=== PATIENT | male | born 1945 | race Caucasian/White ===

== ENCOUNTER 2017-08-30 15:20 | Observation (INO) ==
--- NOTE | 2017-08-30 15:27 | Emergency Department Note ---
Disposition Clinical Impression: Periprosthetic fracture around prosthetic knee, Tibial plateau fracture, left Disposition: Admitted As Inpatient Condition: Good Referrals: Daniel Mera DO [Primary Care Provider] - Forms: ED Satisfaction Letter Time of Disposition: 17:21 Lower Extremity Injury HPI - General Chief Complaint: ED Extremity Injury, Lower Stated Complaint: LEFT KNEE/UPPER LEG INJURY Time Seen by Provider: 08/30/17 15:25 Source: patient, EMS Mode of arrival: EMS Limitations: no limitations Nursing Notes Reviewed: Yes Vital Signs Reviewed: Yes - History of Present Illness HPI Narrative: patient slipped today on wet pavement and bent his L knee under him. Has a L knee replacement and concerned about hardware. States he feels like he just pulled a muscle but hasn't been in this much pain before. No head injury or LOC. No CP, SOB, abd pain, n/v/d. - Related Data Allergies Allergy/AdvReac Type Severity Reaction Status Date / Time No Known Allergies Allergy Verified 08/30/17 15:36 Review of Systems: As reviewed in the HPI. All other systems reviewed are negative or normal. Past Medical History - Past Medical History Attestation: Yes The following information was validated with the patient. Source: patient Physical Exam - General Limitations: no limitations General appearance: alert, in no apparent distress - Head Head exam: atraumatic, normocephalic, normal inspection - Chest Chest inspection: Present: normal inspection, symmetric chest wall rise - Respiratory Respiratory exam: Present: normal lung sounds bilaterally - Cardiovascular Cardiovascular exam: Present: regular rate, normal rhythm, normal heart sounds - Abdominal Exam Abdominal exam: Present: soft, Non-Tender. Absent: tenderness, distention, guarding, rebound, rigidity - Expanded Lower Extremity Exam Knee exam: Present: other (Left knee pain, left thigh pain, no obvious deformity or crepitus.) - Neurological Exam Neurological exam: Present: alert, oriented X3 - Psychiatric Psychiatric exam: Present: normal affect, normal mood - Skin Skin exam: Present: warm, dry, intact, normal color Course Course Narrative: X-ray showed a periprosthetic fracture and possible tibial plateau fracture. I contacted the patient's orthopedic surgeon, Dr. Becerra and he recommended CT of the knee for possible preop planning and we will admit to the hospitalist service. He was accepted for admission. Vital Signs Temperature 98.1 F 08/30/17 15:25 Pulse Rate 69 08/30/17 15:25 Respiratory Rate 18 08/30/17 15:25 Blood Pressure 201/109 08/30/17 15:25 O2 Sat by Pulse Oximetry 97 08/30/17 15:25 Temperature 98.1 F 08/30/17 15:25 Pulse Rate 65 08/30/17 16:52 Respiratory Rate 18 08/30/17 16:52 Blood Pressure 186/81 08/30/17 16:52 O2 Sat by Pulse Oximetry 96 08/30/17 16:52 Oxygen Delivery Oxygen Delivery Room Air Extremity Injury, Lower - Lab Data Result diagrams: 08/30/17 16:46 08/30/17 16:46 Lab Results 08/30/17 08/30/17 Range/Units 16:46 16:46 WBC 4.9 (4.3-11.1) K/mcL RBC 3.96 L (4.19-5.50) M/mcL Hgb 11.1 L (12.9-16.9) g/dL Hct 34.4 L (37.5-50.1) % MCV 86.9 (83.0-100.0) fL MCH 28.0 (28.0-33.3) pg MCHC 32.3 (31.6-35.5) g/dL RDW 15.3 H (11.5-14.5) % Plt Count 148 (140-400) K/mcL MPV 9.6 (9.4-12.4) fL Immature Gran % 0.2 (0-4) % Seg Neutrophils % 58.8 % Lymphocytes % 25.0 % Monocytes % 10.9 % Eosinophils % 4.5 % Basophils % 0.6 % Neutrophils # 2.9 (1.6-8.9) K/mcL Lymphocytes # 1.2 (0.6-4.6) K/mcL Monocytes # 0.5 (0.0-1.3) K/mcL Eosinophils # 0.2 (0.0-0.6) K/mcL Basophils # 0.0 (0.0-0.2) K/mcL Sodium 138 (136-145) mEq/L Potassium 3.9 (3.5-5.1) mEq/L Chloride 105 (98-107) mEq/L Carbon Dioxide 25 (23-29) mEq/L BUN 25 H (8-23) mg/dL Creatinine 0.88 (0.70-1.30) mg/dL Est GFR ( Amer) > 60 (> 60) Est GFR (Non-Af Amer) > 60 (> 60) BUN/Creatinine Ratio 28 H (6-26) Glucose 185 H (70-105) mg/dL Calculated Osmolality 295 (280-300) Calcium 9.4 (8.6-10.3) mg/dL
[2017-08-30] MEDS ORDERED: Acetaminophen 325 MG TABLET PO ONE (15:34)
--- NOTE | 2017-08-30 15:34 | Emergency Department Note ---
Disposition Clinical Impression: Periprosthetic fracture around prosthetic knee, Tibial plateau fracture, left Disposition: Admitted As Inpatient Condition: Good General Adult HPI - General Chief complaint: ED Extremity Injury, Lower Stated complaint: LEFT KNEE/UPPER LEG INJURY Time Seen by Provider: 08/30/17 15:25 Source: patient, EMS Mode of arrival: EMS Limitations: no limitations Nursing Notes Reviewed: Yes Vital Signs Reviewed: Yes - History of Present Illness Pain Scale: 3 - Related Data Allergies Allergy/AdvReac Type Severity Reaction Status Date / Time No Known Allergies Allergy Verified 08/30/17 15:36 Past Medical History - Past Medical History Medical history: Reports: diabetes, hyperlipidemia, hypertension Psychiatric history: Reports: no psych history - Social History Smoking Status: Never smoker Smokeless Tobacco Status: No Alcohol use: Reports: none Drug use: Reports: none Physical Exam - General Limitations: no limitations General appearance: alert, in no apparent distress Course Vital Signs Temperature 98.1 F 08/30/17 15:25 Pulse Rate 69 08/30/17 15:25 Respiratory Rate 18 08/30/17 15:25 Blood Pressure 201/109 08/30/17 15:25 O2 Sat by Pulse Oximetry 97 08/30/17 15:25 Temperature 98.1 F 08/30/17 15:25 Pulse Rate 65 08/30/17 16:52 Respiratory Rate 18 08/30/17 16:52 Blood Pressure 186/81 08/30/17 16:52 O2 Sat by Pulse Oximetry 96 08/30/17 16:52 Oxygen Delivery Oxygen Delivery Room Air Medical Decision Making - MDM Narrative Medical decision making narrative: This documentation is done with the assistance of Dragon dictation. Despite efforts made to ensure accuracy, there may be inaccuracies in supervisor bottle house cleaners or spelling and typographical errors. Patient seen for a slip and fall on water. Sounds like he had a hyper extension injury of his left thigh. No tenderness on the hip but he does have on the knee in the mid thigh. We will do imaging studies and reassess. He did not strike his head did not lose conscious. Femur X-Ray 08/30/17 15:25 IMPRESSION: Postsurgical changes from constrained/semi constrained left total knee arthroplasty. There is a gap between the femoral component and the axle of the tibial component, which may reflect hardware dislocation. Acute, nondisplaced, oblique fracture of the medial femoral condyle. Transversely oriented lucency of the medial tibial plateau likely also reflects an acute fracture. No proximal femoral fracture. D/ / 08/30/2017 16:13:52 Joanne Bella MD / kelly Interpreting Provider: Joanne Bella MD Knee X-Ray 08/30/17 15:25 IMPRESSION: Postsurgical changes from constrained/semi constrained left total knee arthroplasty. There is a gap between the femoral component and the axle of the tibial component, which may reflect hardware dislocation. Acute, nondisplaced, oblique fracture of the medial femoral condyle. Transversely oriented lucency of the medial tibial plateau likely also reflects an acute fracture. No proximal femoral fracture. D/ / 08/30/2017 16:13:52 Joanne Bella MD / kelly Interpreting Provider: Joanne Bella MD 1630 hrs.: He like to go home. Were going to discuss with his orthopedic surgeon, Dr. Silva, probably knee brace and walker crutches. And then follow up with them. Patient's in agreement with this plan. 1645 hrs.: Spoke with Dr. Moses, he said going to CT the area and he prefer we go ahead and admit the patient now and he can evaluate him in the scene if he needs surgery. Patient's in agreement this plan. We will speak with hospitalist for admission. Consult orthopedics. - Lab Data Result diagrams: 08/30/17 16:46 08/30/17 16:46 Lab Results 08/30/17 08/30/17 Range/Units 16:46 16:46 WBC 4.9 (4.3-11.1) K/mcL RBC 3.96 L (4.19-5.50) M/mcL Hgb 11.1 L (12.9-16.9) g/dL Hct 34.4 L (37.5-50.1) % MCV 86.9 (83.0-100.0) fL MCH 28.0 (28.0-33.3) pg MCHC 32.3 (31.6-35.5) g/dL RDW 15.3 H (11.5-14.5) % Plt Count 148 (140-400) K/mcL MPV 9.6 (9.4-12.4) fL Immature Gran % 0.2 (0-4) % Seg Neutrophils % 58.8 % Lymphocytes % 25.0 % Monocytes % 10.9 % Eosinophils % 4.5 % Basophils % 0.6 % Neutrophils # 2.9 (1.6-8.9) K/mcL Lymphocytes # 1.2 (0.6-4.6) K/mcL Monocytes # 0.5 (0.0-1.3) K/mcL Eosinophils # 0.2 (0.0-0.6) K/mcL Basophils # 0.0 (0.0-0.2) K/mcL Sodium 138 (136-145) mEq/L Potassium 3.9 (3.5-5.1) mEq/L Chloride 105 (98-107) mEq/L Carbon Dioxide 25 (23-29) mEq/L BUN 25 H (8-23) mg/dL Creatinine 0.88 (0.70-1.30) mg/dL Est GFR ( Amer) > 60 (> 60) Est GFR (Non-Af Amer) > 60 (> 60) BUN/Creatinine Ratio 28 H (6-26) Glucose 185 H (70-105) mg/dL Calculated Osmolality 295 (280-300) Calcium 9.4 (8.6-10.3) mg/dL Attestation Statement - Attestation Attestation: I examined this patient and my medical decision-making was reviewed with the Resident Physician. I agree with the documented findings, disposition and treatment plan as described except to the extent set forth below. Patient seen and evaluated on arrival with EMS and Dr. Orozco, I agree with his evaluation and management plan, supervised care the patient's stay.
[2017-08-30 17:03] LABS: Basophils % 0.6 %; Eosinophils # 0.2 K/mcL (0.0-0.6); Eosinophils % 4.5 %; Hematocrit 34.4 % (37.5-50.1); Hemoglobin 11.1 g/dL (12.9-16.9); Immature Granulocytes % 0.2 % (0-4); Lymphocytes # 1.2 K/mcL (0.6-4.6); Mean Corpuscular HGB Conc 32.3 g/dL (31.6-35.5); Mean Corpuscular Volume 86.9 fL (83.0-100.0); Mean Platelet Volume 9.6 fL (9.4-12.4); Monocytes # 0.5 K/mcL (0.0-1.3); Monocytes % 10.9 %; Neutrophils # 2.9 K/mcL (1.6-8.9); Platelet Count 148 K/mcL (140-400); Red Blood Count 3.96 M/mcL (4.19-5.50); Red Cell Distribution Width 15.3 % (11.5-14.5); Segmented Neutrophils % 58.8 %
[2017-08-30 17:17] LABS: BUN/Creatinine Ratio 28 (6-26); Blood Urea Nitrogen 25 mg/dL (8-23); Calcium 9.4 mg/dL (8.6-10.3); Carbon Dioxide 25 mEq/L (23-29); Chloride 105 mEq/L (98-107); Glucose 185 mg/dL (70-105); Osmolality,Calculated 295 (280-300); Potassium 3.9 mEq/L (3.5-5.1); Sodium 138 mEq/L (136-145); eGFR For African Americans > 60 (> 60); eGFR For Non-African Americans > 60 (> 60)
[2017-08-30] MEDS ORDERED: *HR* Labetalol 100 MG/20 ML MDV IVP ONE (17:20)
[2017-08-30] MEDS ORDERED: *HR* HYDROmorphone (PF) 1 MG/ML SYRINGE IVP ONE (17:20)
--- NOTE | 2017-08-30 17:29 | Internal Med History&Physical ---
Date of Encounter: 08/30/17 Time of Encounter: 17:20 Assessment and Plan (1) Periprosthetic fracture around prosthetic knee Current visit: Yes Status: Acute Patient had to left total knee replacement 8-10 years ago, X-ray showed a left knee fracture, orthopedic surgery was contacted by ED physician Likely need a surgery intervention Per-op cardiac risk, patient denies CK D, no CAD ID, stents or CABG, has diabetes not on insulin, but he has a very limited functional capacity due to morbid obesity and osteoarthritis, he had echocardiogram done in March 2017 at the [facility] we will obtain the report. Patient denies active chest pain or shortness of breath. We will obtain EKG for preop, no further cardiac testing Patient is considered at low risk for preoperative advanced to cardiac events Qualifiers: Qualified Code(s): M97.8XXA - Periprosthetic fracture around other internal prosthetic joint, initial encounter; Z96.659 - Presence of unspecified artificial knee joint; Z96.659 - Presence of unspecified artificial knee joint (2) Hypertension Current visit: Yes Status: Chronic Patient has hypertensive urgency, he said it knee pain is much better, 3 out of 10, he took his morning meds I will order hydrolazine as needed Qualifiers: Hypertension type: essential hypertension Qualified Code(s): I10 - Essential (primary) hypertension (3) Diabetes Current visit: Yes Status: Chronic Qualifiers: Diabetes mellitus type: type 2 Diabetes mellitus fdc insulin use: without middle or intermediate school principal use Diabetes mellitus complication status: without complication Qualified Code(s): E11.9 - Type 2 diabetes mellitus without complications (4) Hyperlipidemia Current visit: Yes Status: Chronic Qualifiers: Hyperlipidemia type: other hyperlipidemia Qualified Code(s): E78.4 - Other hyperlipidemia (5) JENNIFER (obstructive sleep apnea) Current visit: Yes Status: Chronic Continue CPAP at night (6) Morbid obesity with BMI of 40.0-44.9, adult Current visit: Yes Status: Chronic (7) Gout Current visit: Yes Status: Chronic Patient had a recent acute gouty attack, continue colchicine and allopurinol Qualifiers: Gout site: foot Encounter type: sequela Chronicity: chronic Laterality : unspecified laterality Presence of tophus: without tophus Qualified Code(s ): T56.0X1S - Toxic effect of lead and its compounds, accidental (unintentional) , sequela; 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 Rodriguez is a 72 year old male history of hypertension morbid obesity hyperlipidemia, JENNIFER on CPAP, he is pretty much homebound due to OA presenting emergency room for sudden onset of left knee pain after fall. Patient was tried to get into the car, fell on the knee and he developed acute onset left knee pain it was 8 out of 10 constant, sharp, unable to move the knee,, he called the squad and the was sent to emergency room. Patient denies any loss of consciousness no other injuries. In the ER, knee x-ray shows possible fracture. Orthopedic surgery was contacted, patient will require surgery intervention. Patient denies CK D, denies history of a heart attack, stents or CABG surgery. He has a very limited functional capacity, almost homebound. He denies any active chest pain or exertional shortness of breasts. 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 We will obtian echocardiogram from [facility]. Patient is going to be admtted for left knee fracture, pre-op, hypertensive urgency. Past Med Surg Social Fam HX - Past Medical History Medical history: diabetes, hyperlipidemia, hypertension Psychiatric history: no psych history - Social History Smoking Status: Never smoker Smokeless Tobacco Status: No Alcohol use: none Drug use: none Internal Medicine - H&P: Meds 3 Allergy/AdvReac Type Severity Reaction Status Date / Time No Known Allergies Allergy Verified 08/30/17 15:36 All Systems PM: Pertinent findings as documented above in the HPI. All other systems were reviewed and are negative - Constitutional Vitals: Temp Pulse Resp BP Pulse Ox 98.1 F 65 18 186/81 96 08/30/17 15:25 08/30/17 16:52 08/30/17 16:52 08/30/17 16:52 08/30/17 16:52 General appearance: Present: A&O X 3, morbidly obese Exam: CONSTITUTIONAL: patient appears as an age appropriate male in no acute distress. EYES Clear sclerae, bilateral pupils are equal, reactive to light. EMOI. RESPIRATORY: No accessory muscle use, bilateral clear to auscultation, no wheezing, no crackles/rales. CARDIOVASCULAR: Regular heart rate, normal S1 and S2, no murmurs GASTROINTESTINAL: bowel sounds present, soft, no tenderness. MUSCULOSKELETAL: Joints in normal range of motion, no clubbing, no edema, no cyanosis. Bilateral peripheral pulses 2+. NEUROLOGIC: CN II to XII are grossly intact, no focal neurological deficit. Internal Med - H&P Results - Labs CBC & Chem 7: 08/30/17 16:46 08/30/17 16:46 Labs: Short CBC 08/30/17 Range/Units 16:46 WBC 4.9 (4.3-11.1) K/mcL Hgb 11.1 L (12.9-16.9) g/dL Hct 34.4 L (37.5-50.1) % Plt Count 148 (140-400) K/mcL Neutrophils # 2.9 (1.6-8.9) K/mcL BMP 08/30/17 16:46 Sodium 138 Potassium 3.9 Chloride 105 Carbon Dioxide 25 BUN 25 H Creatinine 0.88 Glucose 185 H Calcium 9.4 - Impressions ITS Impressions Femur X-Ray 08/30/17 15:25 IMPRESSION: Postsurgical changes from constrained/semi constrained left total knee arthroplasty. There is a gap between the femoral component and the axle of the tibial component, which may reflect hardware dislocation. Acute, nondisplaced, oblique fracture of the medial femoral condyle. Transversely oriented lucency of the medial tibial plateau likely also reflects an acute fracture. No proximal femoral fracture. D/ / 08/30/2017 16:13:52 Joanne Bella MD / kelly Interpreting Provider: Joanne Bella MD Knee X-Ray 08/30/17 15:25
[2017-08-30] MEDS ORDERED: Dextrose Gel 15 GM/37.5 ML TUBE PO PRN ×2 (17:43)
[2017-08-30] MEDS ORDERED: *HR* Dextrose 50 % in Water (Syg) 50 ML SYRINGE IVP PRN (17:43)
[2017-08-30] MEDS ORDERED: D5% in Water 1,000 ML IVC PRN (17:43)
[2017-08-30] MEDS ORDERED: *HR* HYDROcodone/Acet 5/325 mg TABLET PO PRN (17:49)
[2017-08-30] MEDS ORDERED: Naloxone 0.4 MG/ML INJ IVP PRN (17:49)
[2017-08-30] MEDS ORDERED: *HR* OxyCODONE Immed Rel 5 MG TABLET PO PRN (17:59)
[2017-08-30 19:51] LABS: Bilirubin,Urine Negative (Negative); Blood,Urine Trace (Negative); Clarity,Urine Clear (Clear); Color,Urine Yellow (Yellow); Glucose,Urine (UA) Normal (Normal); Ketones,Urine Negative (Negative); Leukocyte Esterase,Urine Negative (Negative); Nitrite,Urine Negative (Negative); Protein,Urine Trace mg/dL (Neg-Trace); Specific Gravity,Urine 1.023 (1.010-1.025); Urobilinogen,Urine Normal (Normal)
[2017-08-30 19:53] LABS: Bacteria,Urine None Seen per hpf (None-Few); Hyaline Casts,Urine None Seen per lpf (None-Few); Squamous Epithelial Cell,Urine Moderate per lpf (None-Few); WBC,Urine 0-3 per hpf (0-3)
[2017-08-30 20:15] LABS: Sperm,Urine Present
--- NOTE | 2017-08-30 20:58 | Orthopedic Consult Note ---
Date of Encounter: 08/30/17 Time of Encounter: 20:55 History of Present Illness Chief complaint: Left knee pain HPI: Mr. Rodriguez is a 72 year old male who is about 5-1/2 years after having had a left total knee arthroplasty. The patient has had no problems with his knee until today. He states that he was in his usual state of health and function which was somewhat diminished because of some recent problems with weakness probably related to some thyroid issues. The patient was outside when he slipped on the wet ground and he fell with a hyperflexion type injury to the left knee. He had immediate pain and was unable to get up or put weight on the leg. He ultimately was brought to [facility] were x-rays and CT scan were performed. This yielded evidence of complicating fractures about his left total knee arthroplasty. I had seen the patient in the office January [id number]. At that time he was doing well and x-rays were unremarkable. He previously had a medial collateral ligament repair in the distant past. I reviewed the patient's history and physical data including the completed portion of the medical record. Pertinent orthopedic examination reveals a marked effusion about the left knee. There is a well-healed midline and medial incision. Exam was declined further due to the imaging findings. I reviewed multiple x-rays of the left hip and femur as well as the left knee. These findings revealed a definite change of the knee prosthesis. Additionally a CT scan of the knee was performed. In summary this reveals the followin. Comminuted though nondisplaced fracture of the patella with an intact patella component 2. Periprosthetic fractures about the femoral component within alteration in the position of the prosthesis into a flexed position with an obvious fracture line along the medial margin of the medial femoral condyle with lucencies seen posterior. 3. Increased space between the femoral and tibial components in the lateral compartment 4. Findings consistent with a fracture of the posterior medial tibial plateau below the prosthesis. Impression: Multiple fractures about the left total knee prosthesis (patella, femoral and tibial) with findings consistent with a loose prosthesis secondary to the acute trauma. Recommendation: The patient will ultimately require some sort of surgical intervention in the form of a revision knee. This, however, needs to be delayed in light of the acute fractures which must heal prior to intervention. Would place the patient into a knee immobilizer and start therapy to maintain nonweightbearing. I long discussion with the patient and reviewed the images with him. He understands the plan for his knee. We will apply the immobilizer and consult therapy to start to mobilize the patient. Thank you for allowing me to see and treat Mr. Noble. Sincerely, Daniel Becerra, DO Past Med Surg Social Fam HX - Past Medical History Medical history: diabetes, hyperlipidemia, hypertension Psychiatric history: no psych history - Social History Smoking Status: Never smoker Smokeless Tobacco Status: No Alcohol use: none Drug use: none - Family History Son Living Status: Still Living Hx Family Endocrine Disorder: Yes (DM) Medications and Allergies Allopurinol [Zyloprim 100 MG] 100 mg PO BID 08/30/17 [History] Atorvastatin Calcium [Lipitor] 30 mg PO DAILY 08/30/17 [History] Colchicine [Colcrys] 0.6 mg PO BID 08/30/17 [History] Enalapril Maleate [Vasotec] 20 mg PO DAILY 08/30/17 [History] Furosemide [Lasix] 20 mg PO DAILY 08/30/17 [History] Gemfibrozil [Lopid] 600 mg PO DAILY 08/30/17 [History] Levothyroxine Sodium 200 mcg PO 0630 08/30/17 [History] Metoprolol XL (24 HR) Succ [Toprol XL] 25 mg PO DAILY 08/30/17 [History] Piroxicam [Feldene] 20 mg PO DAILY 08/30/17 [History] Terazosin HCl 2 mg PO BID 08/30/17 [History] cefaDROXil [Cefadroxil] 1,000 mg PO AD PRN MDD SEE NOTE 08/30/17 [History] 3 Allergy/AdvReac Type Severity Reaction Status Date / Time No Known Allergies Allergy Verified 08/30/17 18:20 All Systems Reviewed: The remainder of the systems were reviewed and are negative Physical Exam - Constitutional Vitals: Temp Pulse Resp BP Pulse Ox 98.7 F 65 20 180/76 95 08/30/17 18:21 08/30/17 18:21 08/30/17 18:21 08/30/17 18:21 08/30/17 18:42 Results - Labs Result Diagrams: 08/30/17 16:46 08/30/17 16:46 Labs: Abnormal lab results RBC 3.96 M/mcL (4.19-5.50) L 08/30/17 16:46 Hgb 11.1 g/dL (12.9-16.9) L 08/30/17 16:46 Hct 34.4 % (37.5-50.1) L 08/30/17 16:46 RDW 15.3 % (11.5-14.5) H 08/30/17 16:46 BUN 25 mg/dL (8-23) H 08/30/17 16:46 BUN/Creatinine Ratio 28 (6-26) H 08/30/17 16:46 Glucose 185 mg/dL (70-105) H 08/30/17 16:46 POC Glucose 157 mg/dL (70-99) H 08/30/17 20:31 Urine Blood Trace (Negative) H 08/30/17 19:33 Urine Microscopic RBC 3-5 per hpf (0-3) H 08/30/17 19:33 Ur Squamous Epith Cells Moderate per lpf (None-Few) H 08/30/17 19:33 All other labs normal. - Diagnostic results Hip AP/Lateral x-ray: image reviewed Knee x-ray: image reviewed Knee CT: image reviewed Consult Discharge Plan - Plan Referrals: ColopyDaniel DO [Primary Care Provider] -
[2017-08-30] MEDS ORDERED: Insulin LISPRO 300 UNITS/3 ML VIAL SQ SCH (21:00)
[2017-08-30] MEDS: Colchicine 0.6 MG TABLET PO SCH (21:33)
[2017-08-30] MEDS ORDERED: cephALEXin 500 MG CAPSULE PO ONE (22:45)
[2017-08-31 01:22] LABS: Basophils % 0.6 %; Eosinophils # 0.2 K/mcL (0.0-0.6); Eosinophils % 3.6 %; Hematocrit 32.1 % (37.5-50.1); Hemoglobin 10.5 g/dL (12.9-16.9); Immature Granulocytes % 0.3 % (0-4); Lymphocytes # 1.9 K/mcL (0.6-4.6); Lymphocytes % 28.6 %; Mean Corpuscular HGB Conc 32.7 g/dL (31.6-35.5); Mean Corpuscular Hemoglobin 28.2 pg (28.0-33.3); Mean Corpuscular Volume 86.3 fL (83.0-100.0); Mean Platelet Volume 10.2 fL (9.4-12.4); Monocytes # 0.7 K/mcL (0.0-1.3); Monocytes % 10.7 %; Neutrophils # 3.8 K/mcL (1.6-8.9); Platelet Count 157 K/mcL (140-400); Red Blood Count 3.72 M/mcL (4.19-5.50); Red Cell Distribution Width 15.7 % (11.5-14.5); Segmented Neutrophils % 56.2 %
[2017-08-31 01:31] LABS: Prothrombin Time 11.1 Seconds (9.4-12.1)
[2017-08-31 01:38] LABS: BUN/Creatinine Ratio 30 (6-26); Blood Urea Nitrogen 24 mg/dL (8-23); Carbon Dioxide 23 mEq/L (23-29); Chloride 107 mEq/L (98-107); Chol/HDL Ratio 5.5 (0-4.9); Cholesterol 133 mg/dL (< 200); Glucose 138 mg/dL (70-105); HDL Cholesterol 24 mg/dL (40-59); LDL Cholesterol,Calculated 66 mg/dL (0-99); Magnesium 1.6 mg/dL (1.6-2.6); Osmolality,Calculated 292 (280-300); Potassium 3.5 mEq/L (3.5-5.1); Sodium 138 mEq/L (136-145); Triglycerides 216 mg/dL (< 150); eGFR For African Americans > 60 (> 60); eGFR For Non-African Americans > 60 (> 60)
[2017-08-31] MEDS: Colchicine 0.6 MG TABLET PO SCH (08:20)
[2017-08-31] MEDS: Insulin LISPRO 300 UNITS/3 ML VIAL SQ SCH ×3 (08:29→17:14)
[2017-08-31] MEDS ORDERED: Metoprolol XL (24 HR) Succ 25 MG TAB.ER.24H PO SCH (09:00)
[2017-08-31] MEDS ORDERED: Lisinopril 20 MG TABLET PO SCH (09:00)
[2017-08-31] MEDS ORDERED: Furosemide 20 MG TABLET PO SCH (09:00)
[2017-08-31] MEDS ORDERED: Diclofenac Sodium (24 HR) 100 MG TABLET PO SCH (09:00)
[2017-08-31] MEDS ORDERED: CEFADROXIL PO SCH (10:00)
--- NOTE | 2017-08-31 14:41 | Internal Med Progress Note ---
Date of Encounter: 08/31/17 Time of Encounter: 10:00 - Time Spent With Patient Total time spent is greater than 50% in coordination of care (as documented) at patient's floor/unit and/or counseling patient: - Subjective Interval history: Patient states his pain is well tolerated at this time. He denies new fevers, chills, SOB or chest pain. He has not yet borne ay weight though. - Constitutional Vitals: Temp Pulse Resp BP Pulse Ox 98.0 F 63 18 147/73 95 08/31/17 10:40 08/31/17 10:40 08/31/17 10:40 08/31/17 10:40 08/31/17 10:40 General appearance: Present: A&O X 3, morbidly obese Internal Medicine: Result - Labs CBC & Chem 7: 08/31/17 00:37 08/31/17 00:37 Labs: Short CBC 08/31/17 Range/Units 00:37 WBC 6.7 (4.3-11.1) K/mcL Hgb 10.5 L (12.9-16.9) g/dL Hct 32.1 L (37.5-50.1) % Plt Count 157 (140-400) K/mcL Neutrophils # 3.8 (1.6-8.9) K/mcL BMP 08/31/17 00:37 Sodium 138 Potassium 3.5 Chloride 107 Carbon Dioxide 23 BUN 24 H Creatinine 0.79 Glucose 138 H Calcium 9.0 Urine 08/30/17 Range/Units 19:33 Urine Color Yellow (Yellow) Urine Clarity Clear (Clear) Urine pH 6.0 (5.0-8.0) pH Units Ur Specific [place] 1.023 (1.010-1.025) Urine Protein Trace (Neg-Trace) mg/dL Urine Glucose (UA) Normal (Normal) mg/dL - ABG Interpretation ABG results: PT/INR, D-dimer PT 11.1 Seconds (9.4-12.1) 08/31/17 00:37 Consult Discharge Plan - Plan Referrals: Daniel Mera DO [Primary Care Provider] -
--- NOTE | 2017-08-31 14:49 | Discharge Summary ---
- NOTES TO OUTPATIENT PROVIDER Notes to Outpatient Provider: Follow-up with the primary care physician for pain control needs should you require any opiates. The patient has declined opiate prescription upon discharge and wants to control his pain with NSAIDs Date of Encounter: 08/31/17 Time of Encounter: 10:30 - Discharge Diagnosis (1) Periprosthetic fracture around prosthetic knee Priority: Primary Status: Acute Qualifiers: Encounter type: subsequent encounter Laterality: left Qualified Code(s): M97.12XD - Periprosthetic fracture around internal prosthetic left knee joint, subsequent encounter; T84.043D - Periprosthetic fracture around internal prosthetic left knee joint, subsequent encounter (2) Diabetes Priority: Secondary Status: Chronic Qualifiers: Diabetes mellitus type: type 2 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 Rodriguez is a 72 year old male who was admitted after an accidental fall and was diagnosed with a periprosthetic fracture around the left prosthetic knee. Patient was seen and evaluated by orthopedic surgery and it was decided that he would need a leg surgery in this situation. They would want for his fractures to heal before any kind of surgical intervention was warranted and he will be followed up by orthopedics as an outpatient. The patient was given a left knee immobilizer, has been asked to the nonweightbearing and work with physical therapy. Based on the evaluation from physical therapy and occupational therapy , we will arrange for home care. His pain is very well controlled and he is declining a prescription for opiates at the time of discharge. He wants to control his pain with [id number] Motrin which is appropriate in this case and I have asked him to discuss with his primary care physician should his pain control need or warrant use of opiates. Medical conditions including hypertension, diabetes, hyperlipidemia, sleep apnea and morbid obesity were also discussed in detail with the patient and he is stable from these medical conditions standpoint he did he is considered okay for discharge pending physical therapy and occupational therapy evaluation and recommendations. I have discussed the plan of care with the nursing Discharge discussed with: patient, nurse - Time Spent with Patient Total time spent providing and/or coordinating discharge services: Greater than 30 minutes - Discharge Medications Home Medications: Allopurinol [Zyloprim 100 MG] 100 mg PO BID 08/30/17 [History] Atorvastatin Calcium [Lipitor] 30 mg PO DAILY 08/30/17 [History] Colchicine [Colcrys] 0.6 mg PO BID 08/30/17 [History] Enalapril Maleate [Vasotec] 20 mg PO DAILY 08/30/17 [History] Furosemide [Lasix] 20 mg PO DAILY 08/30/17 [History] Gemfibrozil [Lopid] 600 mg PO DAILY 08/30/17 [History] Levothyroxine Sodium 200 mcg PO 0630 08/30/17 [History] Metoprolol XL (24 HR) Succ [Toprol Xl] 25 mg PO DAILY 08/30/17 [History] Piroxicam [Feldene] 20 mg PO DAILY 08/30/17 [History] Terazosin HCl 4 mg PO DAILY 08/30/17 [History] cefaDROXil [Cefadroxil] 1,000 mg PO AD PRN MDD SEE NOTE 08/30/17 [History] Allergies/Adverse Reactions: 3 Allergy/AdvReac Type Severity Reaction Status Date / Time No Known Allergies Allergy Verified 08/30/17 18:20 Date of admission: 08/30/17 17:50 Primary care physician: Daniel Urrutia Colopy Consults: 08/30/17 18:38 Consult to Intensive Care Medicine Specialist [CONS] Routine Reason for SW Consult: discharge planning - Constitutional Vitals: Temp Pulse Resp BP Pulse Ox 98.0 F 63 18 147/73 95 08/31/17 10:40 08/31/17 10:40 08/31/17 10:40 08/31/17 10:40 08/31/17 10:40 General appearance: Present: A&O X 3, morbidly obese Exam: GENERAL: Alert, no immediate distress, cooperative EYES: PERRLA, EOMI EARS: External ears normal, canals clear OROPHARYNX: Lips, mucosa, and tongue normal. Teeth and gums normal. Oropharynx normal. NECK: No jugulovenous distention, No carotid bruits, Carotid pulse normal contour, Supple LUNGS: Lungs clear to auscultation, Good diaphragmatic excursion CARDIAC: Normal S1 and S2; no rubs, murmurs, or gallops ABDOMEN: Abdomen soft, non-tender, BS normal, No masses or organomegaly EXTREMITIES: Left knee Significant edema notes. imparied ROM due to pain. keeps it partially flexed. Post op healed scar along frontal aspect of knee NEURO: Gait not tested due to pain . Reflexes normal and symmetric. Sensation grossly intact, Cranial nerves II-XII intact PULSES: 2+ radial, 2+ carotid Rest of the exam is non contributory - Patient Status Disposition: Home Health Service Condition: Fair Functional capacity at discharge: uses cane/walker (Ration has been strictly advised nonweightbearing on the left lower extremity) Overall status at discharge: patient is not back to baseline - Discharge Instructions Follow Up With: Daniel Mera DO [Primary Care Provider] - Daniel Becerra DO [Non-Partnered Physician] - - Diet and Activity Activity: as per physical therapy (Nonweightbearing in the left lower extremity) Diet: advance to your usual diet
--- NOTE | 2017-08-31 14:57 | Physician Discharge Referral ---
Home Health/Hosp Referral Info Provider in Charge Post Discharge: PCP - Diagnosis (1) Periprosthetic fracture around prosthetic knee Status: Acute (2) Diabetes Status: Chronic (3) Hyperlipidemia Status: Chronic (4) Hypertension Status: Chronic (5) Morbid obesity with BMI of 40.0-44.9, adult Status: Chronic - Respiratory Orders Smoking Cessation: Smoking cessation has been advised. For more information, call the [facility] Quit Line at [phone]. - Activity Activity Orders: Walker (Nonweightbearing at all times on the left lower extremity. Immobilizer) - Services Needed Following services are medically necessary services: Physical Therapy, Occupational Therapy - Transfer Medications Home Medications: Allopurinol [Zyloprim 100 MG] 100 mg PO BID 08/30/17 [History] Atorvastatin Calcium [Lipitor] 30 mg PO DAILY 08/30/17 [History] Colchicine [Colcrys] 0.6 mg PO BID 08/30/17 [History] Enalapril Maleate [Vasotec] 20 mg PO DAILY 08/30/17 [History] Furosemide [Lasix] 20 mg PO DAILY 08/30/17 [History] Gemfibrozil [Lopid] 600 mg PO DAILY 08/30/17 [History] Levothyroxine Sodium 200 mcg PO 0630 08/30/17 [History] Metoprolol XL (24 HR) Succ [Toprol Xl] 25 mg PO DAILY 08/30/17 [History] Piroxicam [Feldene] 20 mg PO DAILY 08/30/17 [History] Terazosin HCl 4 mg PO DAILY 08/30/17 [History] cefaDROXil [Cefadroxil] 1,000 mg PO AD PRN MDD SEE NOTE 08/30/17 [History] Allergies/Adverse Reactions: 3 Allergy/AdvReac Type Severity Reaction Status Date / Time No Known Allergies Allergy Verified 08/30/17 18:20 Certification: Further, I certify that my clinical findings support that this patient is homebound (i.e. absences from home require considerable and taxing effort and are for medical reasons or muslim services or infrequently or short duration when for other reasons) because: Homebound Reason: Patient requires assistance of a person or device to safely leave home Attestation: My signature below is to certify that this patient is under my care and that I, or nurse practitioner, or a physician's tiler's assistant working with me, has a face-to -face encounter with this patient.
[2017-08-31 15:35] VITALS: BP 142/76
== END 2017-08-31 18:58 | disposition home health service (06) ==
LOC: 3NENU 15:20 → EMEROO 15:20 → SUATTDRO 17:50 → 3NENU 18:13
PROVIDERS: ADMIT Pediatrics; ATTEND Internal Medicine